=== PATIENT | male | born 1985 | race Caucasian/White ===

== ENCOUNTER 2016-10-08 09:10 | Outpatient (CLI) | payer OTHER ==
[2016-10-08] VITALS (14 sets, daily range): BP systolic 90–121; BP diastolic 59–86; PULSE 56–88
[~2016-10-08] VITALS: Ht 167.6 cm; Wt 34.7 kg
[2016-10-08] MEDS ORDERED: DESYREL 100MG100 MG PO (09:43)
[2016-10-08 10:58] LABS: HEMATOCRIT 45.1 % (42.0-52.0); HEMOGLOBIN 16.2 g/dl (13.5-18.0); MEAN CELL VOLUME 86 fl (80.0-100.0); MEAN CORPUSCULAR HEMOGLOBIN 31 pg (27.0-31.0); MEAN CORPUSCULAR HGB CONC 36 g/dl (33.0-37.0); MEAN PLATELET VOLUME 10.4 fl (7.4-10.4); PLATELET COUNT 225 K/mm3 (130-400); RED BLOOD COUNT 5.24 M/mm3 (4.20-5.60); REDCELL DISTRIBUTION WIDTH-CV 11.5 % (11.5-14.5); WHITE BLOOD COUNT 12.1 K/mm3 (4.8-10.8)
[2016-10-08 10:59] LABS: CALCIUM 9.2 mg/dL (8.4-10.2); CREATININE, serum 0.97 mg/dL (0.66-1.25)
[2016-10-08 11:29] LABS: INR 1.2 (0.8-3.0)
[2016-10-08] MEDS ORDERED: ASPIRIN 81M81 MG/TA2 PO (14:23)
== END 2016-10-08 14:40 | disposition home or self-care (01) ==
LOC: COL.RAD 09:10
PROVIDERS: Internal Medicine Cardiovascular Disease
DX: R07.89 Other chest pain (principal); I49.3 Ventricular premature depolarization; R55 Syncope and collapse; Q21.0 Ventricular septal defect
CPT/HCPCS: J2175; J2250

== ENCOUNTER → 2017-10-22 | Outpatient (CLI) | payer OTHER ==
[~2017-10-22] MED LIST: ASPIRIN 81M81 MG/TA2 PO; DESYREL 100MG100 MG PO
== END ==
LOC: MHCPAIN 08:32
DX: G89.29 Other chronic pain (principal); M79.2 Neuralgia and neuritis, unspecified; M79.1 Myalgia; M25.512 Pain in left shoulder
CPT/HCPCS: G0463

== ENCOUNTER → 2019-10-07 | Outpatient (CLI) | payer OTHER | LOC: COL.RAD 10:00 | DX: M25.512 Pain in left shoulder (principal) | CPT/HCPCS: J3301; Q9967 ==

== ENCOUNTER 2022-09-23 14:27 | Emergency (ER) | payer SELFPAY ==
[~2022-09-23] VITALS: Ht 167.6 cm; Wt 104.5 kg
[2022-09-23 14:52] VITALS: BP 99/56; PULSE 64; TEMP 97.5
== END 2022-09-23 16:50 | disposition home or self-care (01) ==
LOC: COL.ER 14:27
DX: S61.412A Laceration without foreign body of left hand, initial encounter (principal); Z28.310 Unvaccinated for COVID-19; W26.0XXA Contact with knife, initial encounter